=== PATIENT | female | born 1955 | race Caucasian/White ===

== ENCOUNTER → 2019-04-29 16:02 | Outpatient (CLI) | payer OTHER, SELFPAY ==
[2019-04-29 18:01] LABS: Free T3, Triiodothyronine Free 3.25 pg/mL (2.77-5.27); Free T4, Direct Thyroxine 1.15 ng/dL (0.78-2.19)
[2019-04-29 18:15] LABS: Thyroid Stimulating Hormone 1.15 uIU/mL (0.47-4.68)
== END ==
PROVIDERS: PCP Family Medicine; Referring Provider Family Medicine; Visit Provider Family Medicine
DX: E04.1 Nontoxic single thyroid nodule (principal)
CPT/HCPCS: 36415; 84439; 84443; 84481

== ENCOUNTER 2022-08-16 12:41 | Emergency (ER) | payer OTHER, SELFPAY ==
[2022-08-16] VITALS (7 sets, daily range): BP systolic 93–120; BP diastolic 56–64; PULSE 48–61; RESP 15–25; TEMP 36.5; O2SAT 98–100; BMI 21.4
[2022-08-16 13:16] LABS: Add Manual Diff / Slide Review NO; Basophils Absolute Auto 0 /uL (0-100); Basophils Percent Auto 0.4 % (0-2); Eosinophils Absolute Auto 0 /uL (0-450); Eosinophils Percent Auto 0.7 % (2-4); Hematocrit 43.8 % (36-46); Hemoglobin 14.9 g/dL (12.0-16.0); Lymphocytes Absolute Auto 1500 /uL (1100-4500); Lymphocytes Percent Auto 31.3 % (25-40); Mean Corpuscular HGB Conc 34.1 % (30-36); Mean Corpuscular Hemoglobin 30.8 PG (26-34); Mean Corpuscular Volume 90.2 fL (80-100); Monocytes Absolute Auto 400 /uL (0-900); Monocytes Percent Auto 8.4 % (3-14); Neutrophils Absolute Auto 2900 /uL (1500-7000); Neutrophils Percent Auto 59.2 % (50-75); Platelet Count 202 X10^3/uL (150-400); Red Blood Cell Count 4.85 X10^6/uL (4.0-5.2); Red Cell Distribution Width 13.2 % (11.6-14.8); White Blood Cell Count 4.9 X10^3/uL (4.5-11.0)
[2022-08-16 13:27] LABS: Alanine Aminotransferase 23 IU/L (<35); Albumin 4.4 g/dL (3.5-5.0); Albumin Globulin Ratio 1.4 (1.0-2.8); Alkaline Phosphatase 154 U/L (38-126); Aspartate Aminotransferase 28 IU/L (14-36); Bilirubin Total 0.6 mg/dL (0.2-1.3); Blood Urea Nitrogen 13 mg/dL (7-17); Calcium 9.2 mg/dL (8.4-10.2); Carbon Dioxide 30 mmol/L (22-32); Chloride 104 mmol/L (98-107); Estimated Glomerular Filt Rate > 60 mL/min (>60); Globulin 3.1 g/dL (1.7-4.1); Glucose 81 mg/dL (80-110); HEMOLYSIS 60 (0-50); Lipase 197 U/L (23-300); Sodium 138 mmol/L (137-145); Total Protein 7.5 g/dL (6.3-8.2)
[2022-08-16 13:28] LABS: Potassium 4.2 mmol/L (3.4-5.1)
--- NOTE | 2022-08-16 14:47 | PC.NURSE ---
Patient has a history of Right side ovarian cyst in her 20's.
[2022-08-16] MEDS: SODIUM CHLORIDE 0.9% 1,000 ML 1000 ML IV (15:37)
--- NOTE | 2022-08-16 15:43 | PC.NURSE ---
Patient states she usually has a lower blood pressure. last BP 93/57. IV fluids were started. Patient's HR is sinus lorri between 47-55 bpm. Patient does not know her normal HR. Pt denies dizziness, SOB.
--- NOTE | 2022-08-16 17:13 | ED_ITS ---
HPI - Abdominal Pain General Chief Complaint: Abdominal Pain Stated Complaint: ABD pain Time Seen by Provider: 08/16/22 15:28 Source: patient Mode of arrival: Ambulatory Limitations: no limitations History of Present Illness HPI narrative: This is a 66-year-old female with no daily medications, patient presents with complaint of abdominal pain that has been going on for several weeks. It will sometimes resolve it seems to be worse when she eats food it is in the left lower quadrant it does not radiate to her back or flank. She states it has been 3 times over the last several weeks where she is been doubled over with pain. Resolved after a period of time and be achy and then resolved totally. She gets very lightheaded and nauseated when this happens. No syncope. Patient denies any changes to bowel movement she states they have been regular, no black or bloody stools. No constipation or diarrhea. She states no dysuria, urgency or frequency. No flank pain. No vaginal bleeding or discharge. She is notes in her 20s she had ovarian cyst that she had to have removed as it was quite painful in the pattern seems similar. Patient states she is had tonsillectomy, , right ovarian cyst removed, ganglionic cyst in her wrist treated. Allergic to sulfa, penicillin and codeine. No tobacco, occasional alcohol, no illicit. Patient states she has not taken any pain medications she defers a nything here. Related Data Home Medications Medication Instructions Recorded Confirmed [SUPPLEMENTS ONLY] ##0 06/07/17 04/26/20 Allergies Allergy/AdvReac Type Severity Reaction Status Date / Time penicillin G [PENICILLIN G] Allergy Unknown Verified 08/16/22 12:43 Sulfa (Sulfonamide Allergy Unknown Verified 08/16/22 12:43 Antibiotics) [SULFA (SULFONAMIDE ANTIBIOTICS)] codeine Allergy Verified 08/16/22 12:43 Review of Systems Review of Systems ROS Unobtainable: All systems reviewed & are unremarkable except as noted in HPI and below Patient History Medical History Abnormal chest x-ray (~2017) Anemia Anorexia nervosa Anxiety (~2018) Body posture problem Cervical somatic dysfunction Cervical spine disease (~2017) Chicken pox Chronic neck pain Chronic right shoulder pain Cranial somatic dysfunction Dizziness due to old head trauma Dry eyes Fibromyalgia Headache (~2017) Heavy menstrual period Infertility Irregular menstrual cycle Measles Mixed incontinence urge and stress Mumps Ovarian cyst Painful menstrual periods Raynaud's disease Segmental and somatic dysfunction of rib cage Segmental and somatic dysfunction of thoracic region Shoulder pain (~2016) Thyroid nodule (~02/04/19) Tinnitus (~2016) Tinnitus Upper extremity somatic dysfunction Surgical History Anesthesia History of section (~1989) History of removal of ovarian cyst History of surgical removal of ganglion cyst Rectal fissure S/P thyroid biopsy (~02/2019) Family History Father History of heart disease Hypertension Hyperlipidemia Stroke Parkinson's disease Mother Parkinson's disease Brother Hypertension Thyroid disorder Sister Thyroid disorder Grandfather Lung cancer Grandmother History of heart disease Stroke Thyroid disorder Grandfather Infection Grandmother History of heart disease Stroke Social History Smoking Status: Never smoker Smoking Status: Never smoker alcohol intake frequency: holidays/special occasions only Substance Use Type: does not use Exam Narrative Exam Narrative: GENERAL: Alert and oriented x three, female in mild distress. HEENT: Head normocephalic, atraumatic, EOMI, pupils reactive, face symmetric, moist mucous membranes NECK: Supple, full range of motion CARDIOVASCULAR: Regular rate and rhythm without murmurs, rubs or gallops. RESPIRATORY: Breath sounds equal bilaterally, no wheezes rales or rhonchi. ABDOMEN: Soft, positive for left lower quadrant tenderness. Normoactive bowel sounds all 4 quadrants. No guarding or rebound, rigidity, no mass, nondistended. : No CVA tenderness EXTREMITIES: Normal range of motion, no clubbing or edema. Neurovascularly intact NEUROLOGICAL: Cranial nerves II through XII grossly intact. Moving all extremities SKIN: Warm, dry, no petechiae, no rashes or lesions, no rash, no erythema ves icles or other skin changes. Initial Vital Signs Initial Vital Signs: Vital Signs Temperature 97.7 F 08/16/22 12:44 Pulse Rate 60 08/16/22 12:44 Respiratory Rate 15 08/16/22 12:44 Blood Pressure 108/57 L 08/16/22 12:44 Pulse Oximetry 98 08/16/22 12:44 Oxygen Delivery Method Room Air 08/16/22 12:44 Course Orders Ordered: ED Orders 08/16/22 12:49 Urine Microscopic Stat 08/16/22 12:52 Complete Blood Count AUTO DIFF Stat Comprehensive Metabolic Panel Stat Lipase Stat 08/16/22 13:11 EKG-12 Lead Stat 08/16/22 17:22 CT abdomen pelvis w con Stat Discontinued Medications Sodium Chloride (Normal Saline 0.9%) 1,000 mls @ 1,000 mls/hr IV BOLUS ONE Stop: 08/16/22 16:32 Last Infusion: 08/16/22 17:00 Dose: 0 mls/hr Documented By: Admin: 08/16/22 15:37 Dose: 1,000 mls/hr Documented By: HERBERT Ondansetron HCl (Ondansetron 4 Mg/2 Ml Inj) 4 mg IV NOW PRN PRN Reason: Nausea And Vomiting Vital Signs Vital signs: Vital Signs - 8 hr 08/16/22 12:44 08/16/22 14:27 08/16/22 14:27 Temperature 97.7 F Pulse Rate 60 48 L Respiratory Rate 15 Blood Pressure 108/57 L 114/58 L Pulse Oximetry 98 100 Oxygen Delivery Method Room Air 08/16/22 14:30 08/16/22 14:30 08/16/22 15:00 Temperature Pulse Rate 51 L Respiratory Rate 21 Blood Pressure 120/64 93/57 L Pulse Oximetry 99 Oxygen Delivery Method Room Air 08/16/22 15:00 08/16/22 15:30 08/16/22 17:10 Temperature Pulse Rate 50 L 50 L Respiratory Rate 25 H 18 Blood Pressure 119/58 L Pulse Oximetry 99 98 Oxygen Delivery Method Room Air 08/16/22 17:10 08/16/22 18:38 Temperature Pulse Rate 49 L 61 Respiratory Rate 16 Blood Pressure 111/56 L Pulse Oximetry 100 98 Oxygen Delivery Method Room Air Room Air MDM - Abdominal Pain Lab Data 08/16/22 12:52 08/16/22 12:52 Labs: Lab Results 08/16/22 08/16/22 08/16/22 Range/Units 12:49 12:52 12:52 WBC 4.9 (4.5-11.0) X10^3/uL RBC 4.85 (4.0-5.2) X10^6/uL Hgb 14.9 (12.0-16.0) g/dL Hct 43.8 (36-46) % MCV 90.2 (80-100) fL MCH 30.8 (26-34) PG MCHC 34.1 (30-36) % RDW 13.2 (11.6-14.8) % Plt Count 202 (150-400) X10^3/uL Neut % (Auto) 59.2 (50-75) % Lymph % (Auto) 31.3 (25-40) % [place] % (Auto) 8.4 (3-14) % Eos % (Auto) 0.7 L (2-4) % Baso % (Auto) 0.4 (0-2) % Neut # (Auto) 2900 (1886-3651) /uL Lymph # (Auto) 1500 (1527-0199) /uL [place] # (Auto) 400 (0-900) /uL Eos # (Auto) 0 (0-450) /uL Baso # (Auto) 0 (0-100) /uL Sodium 138 (137-145) mmol/L Potassium 4.2 (3.4-5.1) mmol/L Chloride 104 (98-107) mmol/L Carbon Dioxide 30 (22-32) mmol/L BUN 13 (7-17) mg/dL Creatinine 0.52 (0.52-1.04) mg/dL Estimated GFR > 60 (>60) mL/min BUN/Creatinine Ratio 25.0 H (6-22) Glucose 81 (80-110) mg/dL Calcium 9.2 (8.4-10.2) mg/dL Total Bilirubin 0.6 (0.2-1.3) mg/dL AST 28 (14-36) IU/L ALT 23 (<35) IU/L Alkaline Phosphatase 154 H (38-126) U/L Total Protein 7.5 (6.3-8.2) g/dL Albumin 4.4 (3.5-5.0) g/dL Globulin 3.1 (1.7-4.1) g/dL Albumin/Globulin Ratio 1.4 (1.0-2.8) Lipase 197 (23-300) U/L Urine RBC 0-1/hpf (0-5/HPF) Urine WBC 1-5/hpf (0-5/HPF) Other Crystals 2+ amorphous Urine Bacteria Occasional (0-1) (None) Ur Culture Indicated? Cult not indicated Point of care testing: Urine Dip Bedside Urine Glucose Negative Bedside Urine Bilirubin - Negative Bedside Urine Ketone - Negative Urine Specific [place] 1.015 Bedside Urine Occult Blood - Negative Bedside Urine pH 8.0 Bedside Urine Protein - Negative Bedside Urine Urobilinogen - Negative Bedside Urine Nitrite - Negative Bedside Urine Leukocytes - Negative Esterase Imaging Data CT scan - abdomen/pelvis: Radiologist's Impression: [address] [address] [address] Scan Report Signed Patient: Grazyna Wright MR#: [id number] : 1955 Acct:[id number] Age/Sex: 66 / F Date of Service: 08/16/22 Loc: ED Accession Number: [id number] ?? Procedure: CT abdomen pelvis w con Ordering Provider: Sharyn Goodrich D.O. PROCEDURE:? CT ABDOMEN PELVIS W CON ? INDICATIONS:? LLQ pain intermitent for several weeks ? TECHNIQUE:? After the administration of IV contrast, axial sections were acquired from the lung bases to the pubic symphysis.? Coronal and sagittal reformats were performed.? For radiation dose reduction, the following was used:? automated exposure control, adjustment of mA and/or kV according to patient size. ? COMPARISON:? None. ? FINDINGS:? Image quality:? Excellent.? ? Lung bases:? Unremarkable.? ? Heart:? No significant findings. ? ? ABDOMEN: Liver:? Liver measures 17.1 cm with mild steatosis. Gallbladder:? Unremarkable.? ? Biliary ducts:? Unremarkable.? ? Pancreas:? Unremarkable.? ? Spleen:? Unremarkable.? ? Adrenal Glands:? Unremarkable.? ? Kidneys and Ureters:? Nonobstructing left renal calculus.? Complex exophytic focus is present within the posterior aspect of the left kidney measuring 2.6 cm.? Hounsfield units measure -17. ? Stomach and Bowel:? Stomach, small bowel loops, and colon are nonobstructive.? Moderate colonic stool without obstruction. Peritoneum:? No abnormal intraperitoneal fluid.? No free air.? ? Ventral Wall: ? No hernia.? Abdominal Nodes:? No retroperitoneal or mesenteric adenopathy by size criteria.? Vessels:? Aorta and inferior vena cava are normal in size.? ? PELVIS: Pelvic Organs:? Mild appearance of increased pulmonary vascularity within the pelvis is present. Bladder:? Unremarkable.? ? Pelvic Nodes: No enlarged lymph nodes.? Miscellaneous: No inguinal hernias are seen. ? ? ? Bones:? Unremarkable.? IMPRESSION:? ? Moderate colonic stool consistent constipation without obstruction. ? Mild increased vascularity within the pelvis which can represent pelvic congestion syndrome.? Recommend correlation patient's symptoms.? Complex exophytic focus density within the left kidney.? While this could represent angiomyolipoma, other areas of soft tissue density are less specific within the complex region.? Further evaluation with ultrasound on a nonemergent basis may be obtained. ? Nonobstructing left renal calcification.? ? ? Dictated by: Isis Guzman M.D. on 08/16/2022 at 18:07 ? ? Approved by: Isis Guzman M.D. on 08/16/2022 at 18:11?? ECG Data Attestation: I personally reviewed and interpreted this ECG as follows: Interpretation: Sinus bradycardia rate of 55 MA 152 QRS 130 QTC 445. No acute ST elevation. Patient has prior from 06/07/2017 appears similar with bradycardia at that time with a rate of 47. MDM Narrative Medical decision making narrative: This is a 66-year-old female who presents with intermittent but persistent left lower quadrant pain that is sometimes quite intense, patient has negative CBC, coags and chemistry other than an alk phos of 154, negative LFTs and lipase. Urine does not show any acute changes. On examination patient has some [id number] localized left lower quadrant tenderness suspicious for possibly diverticulitis. Patient also notes seems to be worse sometimes when she has eaten, makes me suspect that she is having some peristalsis and causing discomfort. Patient has not had similar symptoms in the past except for the past several weeks other than when she was in her 20s she had a right ovarian cyst that required removal. Patient was noted to be bradycardic, heart rates in the 50 to 40s. She is had prior EKG from 2018 which shows a rate of 47. Nanette ent notes she tends to run 50-[address] abdomen pelvis that shows complex exophytic focus in the posterior aspect of the left, moderate colonic stool without obstruction. Change in kidney could represent a angiomyolipoma but recommend further ultrasound on nonemergent basis. Mild i ncreased vascularity within the pelvis could represent pelvic congestion. Discharge Plan Departure Patient Disposition: Home Clinical Impression: Kidney lesion Activity Restrictions/Additional Instructions: Your imaging today shows a complex exophytic focus or lesion within the left kidney, this could represent an angiomyolipoma but recommended to have follow-up for ultrasound for further evaluation. Call Dr. Coleman office to set up follow-up or US imaging. This maybe causing your pain for maybe an incidental finding. You do have some moderate constipation on imaging. You can take Tylenol up to a 1000 mg every 6 hours and/or ibuprofen up 600 mg every 6 hours as needed. Make sure you are drinking plenty of fluids and eating fiber regularly. Please return for fevers, new or worsening abdominal back flank pain, persistent vomiting, black or bloody stools, difficulty with urination or other new or concerning changes. Prescriptions: No Action [SUPPLEMENTS ONLY] Qty: 0 Referrals: Vik Selby DO [Primary Care Provider] - Stand Alone Forms: Patient Portal/API
--- NOTE | 2022-08-16 17:22 | DI.CT.S_ITS ---
PROCEDURE: CT ABDOMEN PELVIS W CON INDICATIONS: LLQ pain intermitent for several weeks TECHNIQUE: After the administration of IV contrast, axial sections were acquired from the lung bases to the pubic symphysis. Coronal and sagittal reformats were performed. For radiation dose reduction, the following was used: automated exposure control, adjustment of mA and/or kV according to patient size. COMPARISON: None. FINDINGS: Image quality: Excellent. Lung bases: Unremarkable. Heart: No significant findings. ABDOMEN: Liver: Liver measures 17.1 cm with mild steatosis. Gallbladder: Unremarkable. Biliary ducts: Unremarkable. Pancreas: Unremarkable. Spleen: Unremarkable. Adrenal Glands: Unremarkable. Kidneys and Ureters: Nonobstructing left renal calculus. Complex exophytic focus is present within the posterior aspect of the left kidney measuring 2.6 cm. Hounsfield units measure -17. Stomach and Bowel: Stomach, small bowel loops, and colon are nonobstructive. Moderate colonic stool without obstruction. Peritoneum: No abnormal intraperitoneal fluid. No free air. Ventral Wall: No hernia. Abdominal Nodes: No retroperitoneal or mesenteric adenopathy by size criteria. Vessels: Aorta and inferior vena cava are normal in size. PELVIS: Pelvic Organs: Mild appearance of increased pulmonary vascularity within the pelvis is present. Bladder: Unremarkable. Pelvic Nodes: No enlarged lymph nodes. Miscellaneous: No inguinal hernias are seen. Bones: Unremarkable. IMPRESSION: Moderate colonic stool consistent constipation without obstruction. Mild increased vascularity within the pelvis which can represent pelvic congestion syndrome. Recommend correlation patient's symptoms. Complex exophytic focus density within the left kidney. While this could represent angiomyolipoma, other areas of soft tissue density are less specific within the complex region. Further evaluation with ultrasound on a nonemergent basis may be obtained. Nonobstructing left renal calcification. Dictated by: Iiss Guzman M.D. on 08/16/2022 at 18:07 Approved by: Isis Guzman M.D. on 08/16/2022 at 18:11
[2022-08-16 17:30] LABS: Bacteria Urine Occasional (0-1); Culture Indicated Urine Cult Not Indicated; RBC Urine 0-1/HPF (0-5/HPF); WBC Urine 1-5/HPF (0-5/HPF)
== END 2022-08-16 18:43 | disposition home or self-care (01) ==
PROVIDERS: Emergency Provider Emergency Medicine; PCP Family Medicine
DX: N28.9 Disorder of kidney and ureter, unspecified (principal); R10.32 Left lower quadrant pain
CPT/HCPCS: 36415; 74177; 80053; 81003; 81015; 83690; 85025; 93005; 93010; 99284; Q9967

== ENCOUNTER → 2022-08-24 10:09 | Outpatient (CLI) | payer OTHER, SELFPAY ==
--- NOTE | 2022-08-24 10:10 | DI.US.S_ITS ---
PROCEDURE: US PELVIC COMPLETE INDICATIONS: ABNORMAL CT W/ FOCUS ON PELVIS TECHNIQUE: Real-time scanning was performed of the pelvic organs, with image documentation. Additional endovaginal scanning was necessary due to incomplete visualization of the adnexal and endometrial structures by transabdominal scanning. COMPARISON: None. FINDINGS: Uterus: Uterus is anteverted and normal in size at 6.1 x 2.7 x 3.8 cm. The myometrium is homogeneous. The endometrium measures 3 mm combined thickness. Trace fluid within the endometrial cavity. Prominent adnexal vasculature, left greater than right. Ovaries: Ovaries not visualized. Other: No pathologic free abdominal or pelvic fluid. IMPRESSION: Endometrial stripe measures 3 millimeters, within normal limits. Dilated arcuate vasculature, which can be seen in the clinical setting of pelvic congestion syndrome. Ovaries not visualized. We strive to produce accurate, complete, and clear reports of imaging services. To assist us in improving patient care, this report was composed using standard report templates and voice recognition software. Therefore, it may contain abnormal punctuation, insertions and/or omissions. Occasional wrong-word or sound-alike substitutions may occur. Though we review the report and make efforts to correct it, we do recommend that the report be read carefully in proper context to recognize any text inaccuracies. Dictated by: Ronald Edmond M.D. on 08/24/2022 at 12:44 Approved by: Ronald Edmond M.D. on 08/24/2022 at 12:47
--- NOTE | 2022-08-24 10:10 | DI.US.S_ITS ---
PROCEDURE: US RENAL COMPLETE INDICATIONS: ABNORMAL CT OF KIDNEY TECHNIQUE: Real-time scanning was performed of the kidneys and bladder, with image documentation. COMPARISON[facility] CT ABDOM.EN PELVIS W DANIELLE, 08/16/2022, 17:32 FINDINGS: Kidneys: Kidneys are normal in size. Right kidney measures 8.7 cm long; left kidney measures 11.0 cm long. Right renal cortical thickness is 1.8 cm; left renal cortical thickness is 1.4 cm. Renal cortical echotexture is normal. No hydronephrosis. Multiple punctate echogenic foci within the left kidney. Echogenic focus within the lateral aspect of the left kidney measuring roughly 28 mm. No suspicious solid mass lesions. Bladder: Pre-void bladder volume is 245 mL. Pre-void images demonstrate no intraluminal masses or stones. On pre-void images, no ureteral jets are noted with color Doppler interrogation. (Of note, ureteral jets may not be detectable in up to 25% of cases due to insufficient differences in specific gravity between ureteral and bladder urine). Miscellaneous: No free pelvic fluid. IMPRESSION: 1. Multiple nonobstructing left renal calculi. 2. Left renal angiomyolipoma. 3. No hydronephrosis. Dictated by: Demario Saleem M.D. on 08/24/2022 at 16:41 Approved by: Demario Saleem M.D. on 08/24/2022 at 16:43
== END ==
PROVIDERS: PCP Family Medicine; Referring Provider Family Medicine; Visit Provider Family Medicine
DX: D17.71 Benign lipomatous neoplasm of kidney (principal); N20.0 Calculus of kidney; R93.89 Abnormal findings on diagnostic imaging of other specified body structures; N28.9 Disorder of kidney and ureter, unspecified; N39.46 Mixed incontinence; R93.429 Abnormal radiologic findings on diagnostic imaging of unspecified kidney; R10.9 Unspecified abdominal pain
CPT/HCPCS: 76770; 76830; 76856